=== PATIENT | female | born 2000 | race Caucasian/White ===

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

== ENCOUNTER 2022-08-21 08:00 | Outpatient (CLI) | payer OTHER, MEDICAID ==
[2022-08-21 22:27] LABS: BACTERIAL VAGINOSIS DNA NEGATIVE (NEGATIVE); CANDIDA GLABRATA DNA NEGATIVE (NEGATIVE); CANDIDA GROUP DNA NEGATIVE (NEGATIVE); CANDIDA KRUSEI DNA NEGATIVE (NEGATIVE); TRICHOMONAS VAGINALIS DNA NEGATIVE (NEGATIVE)
[2022-08-21 23:28] LABS: CHLAMYDIA TRACHOMATIS DNA NEGATIVE (NEGATIVE); NEISSERIA GONORRHOEAE DNA NEGATIVE (NEGATIVE)
== END 2022-08-21 23:59 | disposition home or self-care (01) ==
LOC: LAB.WC 08:00
PROVIDERS: ATTEND Nurse Practitioner
DX: N89.8 Other specified noninflammatory disorders of vagina (principal); Z11.3 Encounter for screening for infections with a predominantly sexual mode of transmission
CPT/HCPCS: 81514; 87491; 87591; 87661

== ENCOUNTER 2022-11-08 08:00 | Outpatient (CLI) | payer MEDICAID, OTHER ==
[2022-11-08 17:37] LABS: BASOPHILS % (AUTO) 0.2 %; EOSINOPHILS # (AUTO) 0.2 10^3/uL (0.0-0.7); EOSINOPHILS % (AUTO) 1.7 %; HCT - HEMATOCRIT 43.3 % (37.0-47.0); HGB - HEMOGLOBIN 14.1 g/dL (12.0-16.0); LYMPHOCYTES # (AUTO) 2.8 10^3/uL (1.5-3.5); MEAN CORPUSCULAR HEMOGLOBIN 27.1 pg (27.0-31.0); MEAN CORPUSCULAR HGB CONC 32.6 g/dL (32.0-36.0); MEAN CORPUSCULAR VOLUME 83.3 fL (81.0-99.0); MEAN PLATELET VOLUME 10.5 fL (7.9-10.8); MONOCYTES # (AUTO) 0.6 10^3/uL (0.0-1.0); MONOCYTES % (AUTO) 7.2 %; NEUTROPHILS # (AUTO) 5.1 10^3/uL (1.5-6.6); NEUTROPHILS % (AUTO) 58.6 %; PLT - PLATELET COUNT 302 10^3/uL (130-450); RED CELL DISTRIBUTION WIDTH 12.8 % (12.0-15.0); WHITE BLOOD COUNT 8.7 x10^3/uL (4.8-10.8)
[2022-11-08 17:54] LABS: ALBUMIN 4.2 g/dL (3.2-5.5); ALBUMIN/GLOBULIN RATIO 1.3 (1.0-2.2); BILIRUBIN,TOTAL 0.6 mg/dL (0.2-1.0); CALCIUM 9.7 mg/dL (8.5-10.3); CREATININE 0.6 mg/dL (0.4-1.0); POTASSIUM 3.8 mmol/L (3.5-5.0); TOTAL PROTEIN 7.5 g/dL (6.7-8.2)
[2022-11-08 18:10] LABS: THYROID STIMULATING HORMONE 2.9 uIU/mL (0.34-5.60)
== END 2022-11-08 23:59 | disposition home or self-care (01) ==
LOC: LAB.N 08:00
PROVIDERS: ATTEND Family Medicine
DX: R42 Dizziness and giddiness (principal)
CPT/HCPCS: 36415; 80053; 84443; 85025

== ENCOUNTER 2023-06-19 16:31 | Emergency (ER) | payer OTHER ==
[2023-06-19 16:51] VITALS: BP 115/59; O2SAT 99
--- NOTE | 2023-06-19 17:00 | ED Physician Documentation ---
PD HPI UPPER EXT INJURY - Stated complaint Stated Complaint: LT FINGER INJ - Chief complaint Chief Complaint: Laceration - History obtained from History obtained from: Patient - History of Present Illness Location: Left, Finger (corner of thumb nailbed, with brief bleeding.) Type of injury: Other (she states she was bit by a first grader whe was working with at school. bit on thumb and bled briefly. She washed it out copiously at sink.) Where injury occurred: Work Timing - onset: Today Timing - details: Abrupt onset Worsened by: Palpating Associated symptoms: No: Weakness, Numbness Recently seen: Not recently seen Review of Systems Neurologic: denies: Focal weakness, Numbness PD PAST MEDICAL HISTORY - Past Medical History Neuro: None Endocrine/Autoimmune: Type 1 diabetes Psych: ADD/ADHD - Past Surgical History Past Surgical History: No - Present Medications Home Medications: Ambulatory Orders Medication Instructions Recorded Confirmed Insulin Glargine,Hum.rec.anlog 10 unit SUBQ HS 06/06/23 06/19/23 [Basaglar Kwikpen U-100] Insulin Lispro [Humalog Kwikpen 2 - 4 unit SUBQ TIDWM 06/06/23 06/19/23 U-100] Amox/Clav 875/125 [Augmentin] 1 each PO Q12H #10 tablet 06/19/23 - Allergies Allergies/Adverse Reactions: Allergies Allergy/AdvReac Type Severity Reaction Status Date / Time No Known Drug Allergies Allergy Verified 06/19/23 16:43 - Social History Does the pt smoke?: No Does the pt drink ETOH?: No Does the pt have substance abuse?: No - Immunizations Immunizations are current?: Yes - POLST Patient has POLST: No PD ED PE NORMAL - Vitals Vital signs reviewed: Yes - General General: Alert and oriented X 3, No acute distress, Well developed/nourished - Derm Derm: Normal color, Warm and dry - Extremities Extremities: Other (left thumb with puncture on side of nailbed, no involvement through nail nor any subungual bruising. ) - Neuro Neuro: No motor deficit, No sensory deficit Results - Vitals Vitals: Vital Signs - 24 hr 06/19/23 16:44 Temperature 37.1 C Heart Rate 86 Respiratory 16 Rate Blood Pressure 115/59 L O2 Saturation 99 Oxygen O2 Source Room air PD Medical Decision Making - ED course Complexity details: considered differential (not deep of a bite puncture and was cleaned well. Discussed options of empiric antibiotic versus watch and see, with Rx written if signs of infection develop. She opts for the latter. ), d/w patient Departure - Departure Disposition: 01 Home, Self Care Clinical Impression: Human bite of finger Qualifiers: Encounter type: initial encounter Qualified Code(s): S61.259A - Open bite of unspecified finger without damage to nail, initial encounter Condition: Stable Record reviewed to determine appropriate education?: Yes Follow-Up: Emily Santos PA-C [Primary Care Provider] - Prescriptions: Amox/Clav 875/125 [Augmentin] 1 each PO Q12H #10 tablet Comments: The wound looks like it should heal fine. It does not need suturing or such. Cleanse with soap and water couple times a day and apply some ointment and protect it with Band-Aids. You do not have to have it covered all the time. Its superficial/accessible enough that it should have been adequate cleaning to remove most of the germs. As such it is reasonable to just watch and see if any infection develops. I wrote a prescription for Augmentin twice daily for 5 days should it starts looking infected. Otherwise just regular cleaning and let it heal. Tylenol ibuprofen if needed for pains. Forms: PCP List Discharge Date/Time: 06/19/23 17:18
== END 2023-06-19 17:18 | disposition home or self-care (01) ==
LOC: ED 16:31
DX: S61.052A Open bite of left thumb without damage to nail, initial encounter (principal); W50.3XXA Accidental bite by another person, initial encounter; Y92.211 Elementary school as the place of occurrence of the external cause; Y99.0 Civilian activity done for income or pay; E10.9 Type 1 diabetes mellitus without complications
CPT/HCPCS: 1040M; 99282; 99283